=== PATIENT | female | born 1995 | race Caucasian/White ===

== ENCOUNTER 2020-06-25 12:17 | Emergency (ER) | payer BC, SELFPAY ==
[2020-06-25 12:27] VITALS: BP 126/85; PULSE 83; RESP 20; TEMP 37.4; O2SAT 99
--- NOTE | 2020-06-25 12:50 | ED.GENADULT ---
HPI - General Adult General Chief complaint: Anxiety Stated complaint: dizzy/anxiety Source: patient Mode of arrival: ambulatory Limitations: no limitations History of Present Illness HPI narrative: Patient presents for evaluation and treatment of dizziness for the last week and a half. She reports increased stress levels. She was previously on Wellbutrin, Effexor, Risperdal. She states she has an underlying history of chills and anorexia. She has gone through rehabilitation for anorexia several times. 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 She her female partner approximately 3 years ago. They moved to [place] for her to pursue graduate education. She indicates her informed her that she no longer had feelings for her while they are out in [place]. Patient then returned back to this area in December of this year. She has been off her Wellbutrin, Effexor, Risperdal since December. She is currently working at a [employer] and living with her parents. She denies any SI, HI, AH, VH. She denies any illicit drug use. Drinks alcohol rarely. She denies any chest pain, shortness of breath, abdominal pain. She has noted some pelvic pain and nausea. She has not been sexually active with a male partner in over 5 years so she says she is not . Related Data Allergies Allergy/AdvReac Type Severity Reaction Status Date / Time No Known Allergies Allergy Unknown Verified 12/08/18 10:14 Review of Systems Review of Systems: Narrative: CONSTITUTIONAL: Denies fever, chills, or sweats. EYES: Denies visual changes, redness, or discharge. ENT: Denies rhinorrhea, congestion, sore throat, or otalgia. CARDIOVASCULAR: Denies chest pain, palpitations, or edema. RESPIRATORY: Denies cough or dyspnea. GASTROINTESTINAL: Denies abdominal pain, nausea, vomiting, or diarrhea. GENITOURINARY: Denies dysuria or hematuria. SKIN: Denies rash or itching. MUSCULOSKELETAL: Denies back pain, joint pain, or myalgia. NEUROLOGIC: Denies numbness, dizziness, or weakness. Reports mild frontal and temporal headache PSYCHIATRIC: Reports anxiety. Denies SI, HI, AH, VH. [facility] Past Medical History Medical History Anorexia Anxiety Surgical History Surgical History No pertinent past surgical history Family History Family History Grandparent Family history of lung cancer Family history of malignant neoplasm of brain Other Diabetes mellitus Family history of malignant neoplasm Social History Social History Smoking status: Never smoker Alcohol intake: current Alcohol use details: 1-2 per month Substance use: never Living arrangements: with family Occupation/Education: occupation Additional occupation/education comments: works at a [employer] center Gender identity (if verbalized by the patient): Female Sexual Orientation (if Verbalized by the Patient): Lesbian, [place], or Homosexual Exam Narrative: Exam Narrative: GENERAL: Well-appearing, well-nourished, and in no acute distress. HEAD: Normocephalic, atraumatic. EYES: PERRLA and EOMI. ENT: Nares clear, no rhinorrhea or epistaxis. Mucous membranes moist. Oropharynx without tonsillar hypertrophy exudate or other lesions. Bilateral TMs pearly tatum nonbulging NECK: Supple. No adenopathy or masses. No carotid bruits or JVD CHEST: Clear to auscultation. No respiratory distress. No wheezes rales or rhonchi HEART: Regular rate and rhythm. No murmur heard. Normal peripheral pulses. ABDOMEN: Soft, nontender, nondistended, normal active bowel sounds. EXTREMITIES: Normal range of motion. No edema. SKIN: Warm, dry, no rash. NEURO: No focal deficits. Alert and oriented x
== END 2020-06-25 13:09 | disposition home or self-care (01) ==
PROVIDERS: Emergency Provider Nurse Practitioner
DX: F41.9 Anxiety disorder, unspecified (principal)
CPT/HCPCS: 81003; 99213; G0463

== ENCOUNTER 2020-11-25 12:07 | Emergency (ER) | payer BC, SELFPAY ==
[2020-11-25 12:17] VITALS: BP 120/78; PULSE 67; RESP 16; TEMP 37.3; O2SAT 100
--- NOTE | 2020-11-25 12:21 | ED.FEMALEGU ---
HPI - Female Genitourinary General Chief complaint: Urogenital-Female Stated complaint: Kidney Pain/Poss UTI Time Seen by Provider: 11/25/20 12:21 Source: patient Mode of arrival: ambulatory Limitations: no limitations History of Present Illness HPI Narrative: Fawn Rahman is a 25 yo female with a PMH of uti who comes to [facility] with complaints of dysuria. She was started on Macrobid by a telemedicine visit 3 days ago and has a 5-day prescription but has not felt there is improvement in her dysuria, now has back pain, and continued urinary hesitancy. She states she is taken Macrobid as prescribed and is here for reevaluation of her urine Related Data Home Medications Medication Instructions Recorded Confirmed nitrofurantoin monohyd/m-cryst 100 mg DAILY 11/25/20 11/25/20 Allergies Allergy/AdvReac Type Severity Reaction Status Date / Time No Known Allergies Allergy Unknown Verified 12/08/18 10:14 Review of Systems Review of Systems: Narrative: CONSTITUTIONAL: Denies fever, chills, sweats. EYES: Denies visual changes, redness, discharge. ENT: Denies rhinorrhea, congestion, sore throat, otalgia. CARDIOVASCULAR: Denies chest pain, palpitations, edema. RESPIRATORY: Denies dyspnea, wheezing, cough GASTROINTESTINAL: Denies abdominal pain, nausea, vomiting, diarrhea. GENITOURINARY: Has dysuria, no hematuria, no abnormal discharge SKIN: Denies rash or itching. NEUROLOGIC: Denies numbness, or focal weakness. PSYCHIATRIC: Denies anxiety or depression. [facility] Past Medical History Medical History Anorexia Anxiety UTI (urinary tract infection) Surgical History Surgical History No pertinent past surgical history Family History Family History Grandparent Family history of lung cancer Family history of malignant neoplasm of brain Other Diabetes mellitus Family history of malignant neoplasm Social History Social History Smoking status: Never smoker Alcohol intake: current Substance use: never Additional occupation/education comments: works at a [employer] Gender identity (if verbalized by the patient): Female Comments At time of signature, I agree with nursing past medical, surgical, social and family history. There is no relevant family history pertinent to the presenting complaint. Exam Narrative: Exam Narrative: GENERAL: This is a well-nourished, well-developed patient, in mild distress. HEAD: normocephalic, atraumatic. EYES: Sclera clear/white. Vision is grossly intact. EARS: External ears normal, Hearing grossly intact. NOSE: External nose normal without nasal discharge, nares without redness, no rhinorrhea. THROAT: Mucous membranes moist NECK: Neck supple, CARDIOVASCULAR: Regular rate and rhythm without murmurs, gallops, or rubs. RESPIRATORY: Clear to auscultation. Breath sounds equal bilaterally. No wheezes, rales, or rhonchi. GASTROINTESTINAL: Abdomen soft, non-tender, SKIN: warm, intact with no suspicious lesions or rash, good texture and turgor. NEURO: awake, alert, and oriented to person, place and time. There were no obvious focal neurologic abnormalities. Steady gait EXTREMITIES: Normal range of motion. BACK:Mild lower tenderness without deformity Course Course Emergency Course: Patient comes to [facility] for complaints of UTI has been treating UTI for 3 days with Macrobid; received medication over telemedicine visit UA dipstick is clear for nitrate leukocyte esterase of blood the patient continues to have symptoms of lower back pain and dysuria so we will change antibiotic to Keflex Discussed prevention of UTI; development of fever , N/V, increased pain should gop to ER; follow-up with PCP Vital Signs Vital signs: Vital Signs Temperature 9
== END 2020-11-25 12:40 | disposition home or self-care (01) ==
PROVIDERS: Emergency Provider Nurse Practitioner
DX: R30.0 Dysuria (principal); Z87.440 Personal history of urinary (tract) infections
CPT/HCPCS: 81003; 87086; 99213; G0463

== ENCOUNTER 2021-10-08 10:50 | Emergency (ER) | payer BC, SELFPAY ==
[2021-10-08 11:17] VITALS: BP 108/69; PULSE 65; RESP 12; TEMP 37.1; O2SAT 100
[2021-10-08 11:30] VITALS: BP 108/69; PULSE 65; RESP 12; TEMP 37.1; O2SAT 100
--- NOTE | 2021-10-08 11:40 | ED.GENADULT ---
HPI - General Adult General Chief complaint: Upper Respiratory Infection Stated complaint: Sore Throat Source: patient Mode of arrival: ambulatory Limitations: no limitations History of Present Illness HPI narrative: 26 y/o female. PMHx Non-contributory. Presents to [facility] today with acute complaints of 'sore throat' symptoms that started 1 day ago. She reports to have experiences a 'scratchy red throat', however notes now improvements today, 'not as bad'. No fevers. No dyspnea, dysphagia, involuntary drooling. No cough, congestion. No known ill contacts. Client is without additional acute c/o illness upon PE. Related Data Home Medications Medication Instructions Recorded Confirmed No Home Medications 10/08/21 10/08/21 Allergies Allergy/AdvReac Type Severity Reaction Status Date / Time No Known Allergies Allergy Unknown Verified 10/08/21 11:34 Review of Systems Review of Systems: CONSTITUTIONAL: Denies fever, chills, sweats. EYES: Denies visual changes, redness, discharge. ENT: Denies rhinorrhea, congestion, otalgia. Positive sore throat. CARDIOVASCULAR: Denies chest pain, palpitations, edema. RESPIRATORY: Denies dyspnea, wheezing, cough GASTROINTESTINAL: Denies abdominal pain, nausea, vomiting, diarrhea. GENITOURINARY: Denies dysuria, hematuria, abnormal discharge SKIN: Denies rash or itching. MUSCULOSKELETAL: Denies acute back pain, joint pain, or myalgia. NEUROLOGIC: Denies numbness, or focal weakness. PSYCHIATRIC: Denies anxiety or depression. All systems reviewed & are unremarkable except as noted in HPI and below PMFSH Past Medical History Medical History Anorexia Anxiety UTI (urinary tract infection) Surgical History Surgical History No pertinent past surgical history Family History Family History Grandparent Family history of lung cancer Family history of malignant neoplasm of brain Other Diabetes mellitus Family history of malignant neoplasm Social History Social History Smoking status: Never smoker Alcohol intake: current Alcohol use details: 1-2 per month Substance use: never Additional occupation/education comments: works at a [employer] center Gender identity (if verbalized by the patient): Female Sexual Orientation (if Verbalized by the Patient): Lesbian, [place], or Homosexual Exam Narrative: GENERAL: This is a well-nourished, well-developed adult, in no apparent distress. HEAD: normocephalic, atraumatic. EYES: PERRL. Sclera clear/white. EARS: External ears normal, auditory canals clear and without drainage, TMs normal. NOSE: External nose normal. Positive Rhinorrhea, no obstruction, nares patent. THROAT: Mucous membranes moist, posterior pharynx clear. No exudates. NECK: Neck supple, non-tender without lymphadenopathy, masses or thyromegaly. CARDIOVASCULAR: Regular rate and rhythm without murmurs, gallops, or rubs. RESPIRATORY: Clear to auscultation. Breath sounds equal bilaterally. No wheezes, rales, or rhonchi. GASTROINTESTINAL: Abdomen soft, non-tender, nondistended. Bowel sounds are active. No guarding. SKIN: warm, intact with no suspicious lesions or rash, good texture and turgor. NEURO: Alert, active, and age appropriate. No focal neurologic deficits. EXTREMITIES: Negative. Course Course Level of Care: Express Care Visit Vital Signs Vital signs: Vital Signs Temperature 37.1 C 10/08/21 11:17 Pulse Rate 65 10/08/21 11:17 Respiratory Rate 12 10/08/21 11:17 Blood Pressure 108/69 10/08/21 11:17 Pulse Oximetry 100 10/08/21 11:17 Temperature 37.1 C 10/08/21 11:30 Pulse Rate 65 10/08/21 11:30 Respiratory Rate 12 10/08/21 11:30 Blood Pressure 108/69 10/08/21 11:30
== END 2021-10-08 11:44 | disposition home or self-care (01) ==
PROVIDERS: Emergency Provider Nurse Practitioner Adult Health
DX: J02.9 Acute pharyngitis, unspecified (principal)
CPT/HCPCS: 87081; 87880; 99213; G0463